=== PATIENT | male | born 1980 | race Hispanic/Latino ===

== ENCOUNTER 2019-03-24 20:53 | Emergency (ER) | payer SELFPAY ==
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
[2019-03-24] MEDS ORDERED: KETOROLAC 30 MG/ML INJ ONE (21:25)
[2019-03-24 23:14] VITALS: BP 144/97; TEMP 98.4; O2SAT 99
== END 2019-03-24 22:04 | disposition home or self-care (01) ==
LOC: ER 20:53
DX: S33.5XXA Sprain of ligaments of lumbar spine, initial encounter (principal); V49.49XA Driver injured in collision with other motor vehicles in traffic accident, initial encounter
CPT/HCPCS: 96372; 99283

== ENCOUNTER 2019-06-19 11:19 | Emergency (ER) | payer OTHER ==
[2019-06-19] MEDS ORDERED: MORPHINE 4 MG/ML SYR ONE (12:17)
[2019-06-19] MEDS ORDERED: ONDANSETRON 4 MG/2 ML VIAL ONE (12:17)
[2019-06-19 12:36] LABS: Absolute Lymphocytes (CBC) 1.8 K/uL (0.7-4.9); Hematocrit 54.5 % (39.6-49.0); Lymphocytes % 22.4 % (15.3-44.8); MPV 8.5 fL (7.6-11.3); RBC Red Blood Cell Count 6.15 M/uL (4.33-5.43)
[2019-06-19 12:47] LABS: Potassium 4.2 mmol/L (3.5-5.1)
--- NOTE | 2019-06-19 13:08 | RAD REPORT ---
EXAM DESCRIPTION: US - Scrotum Testicles - 06/19/2019 12:54 pm CLINICAL HISTORY: left testicular pain COMPARISON: Pelvis Complete dated 06/13/2019 FINDINGS: The right testicle 4.7 x 3.3 x 2.1 cm. No intratesticular masses or evidence of testicular torsion. The left testicle 4.7 x 3.9 x 2.1 cm. No intratesticular masses or evidence of testicular torsion. Both epididymides are normal in size and appearance. No pathologic fluid collections. IMPRESSION: Unremarkable study.
--- NOTE | 2019-06-19 13:13 | RAD REPORT ---
EXAM DESCRIPTION: CTAbdomen Pelvis W Contrast - 06/19/2019 1:03 pm CLINICAL HISTORY: Abdominal pain. LLQ/inguinal pain COMPARISON: No comparisons TECHNIQUE: Biphasic CT imaging of the abdomen and pelvis was performed with 100 ml non-ionic IV cont rast. All CT scans are performed using dose optimization technique as appropriate and may include automated exposure control or mA/KV adjustment according to patient size. FINDINGS: The lung bases are clear. The liver, spleen, pancreas, adrenal glands and right kidney are within normal limits. 8 mm stone is present midpole left kidney. No hydronephrosis. No bowel obstruction, free air, free fluid or abscess. The appendix is normal. No evidence of signi ficant lymphadenopathy. No suspicious bony findings. Small fat containing left inguinal hernia. IMPRESSION: 8 mm non obstructing left renal calculus. Small fat containing left inguinal hernia.
[2019-06-19 13:39] LABS: Urine Blood NEGATIVE (NEG); Urine Glucose NEGATIVE (NEG); Urine Protein NEGATIVE (NEG); Urine Specific Gravity 1.015 (1.005-1.030)
--- NOTE | 2019-06-19 13:42 | ER ---
Nurse's Notes [facility] Name: Reji Carolina Age: 39 yrs Sex: Male : 1980 Arrival Date: 06/19/2019 Time: 11:22 Bed 27 Private MD: Diagnosis: Unilateral inguinal hernia, without obstruction or gangrene;Nephrolithiasis Presentation: 06/19 11:28 Presenting complaint: Patient states: has hx of left testicular hernia, has been having iw increasing pain to groin, was sen by Dr. Andrea and was told to come to ER for evaluation. Transition of care: patient was not received from another setting of care. Onset of symptoms was 2018. Risk Assessment: Do you want to hurt yourself or someone else? Patient reports no desire to harm self or others. Initial Sepsis Screen: Does the patient meet any 2 criteria? No. Patient's initial sepsis screen is negative. Does the patient have a suspected source of infection? No. Patient's initial sepsis screen is negative. Care prior to arrival: None. 11:28 Method Of Arrival: Ambulatory iw 11:28 Acuity: CECY 3 iw Historical: - Allergies: 11:32 No Known Allergies; iw - PMHx: 11:32 Hypertension; iw - PSHx: 11:32 None; iw - Immunization history:: Adult Immunizations. - Coronavirus screen:: The patient has NOT traveled to [place] in the past 14 days. Proceed with normal triage process as indicated. - Social history:: Smoking status: Patient denies any tobacco usage or history of. - Family history:: not pertinent. - Ebola Screening: : Patient negative for fever greater than or equal to 101.5 degrees Fahrenheit, and additional compatible Ebola Virus Disease symptoms Patient denies exposure to infectious person Patient denies travel to an Ebola-affected area in the 21 days before illness onset No symptoms or risks identified at this time. - Hospitalizations: : No recent hospitalization is reported. Screenin:26 Abuse screen: Denies threats or abuse. Denies injuries from another. Nutritional mg2 screening: No deficits noted. Tuberculosis screening: No symptoms or risk factors identified. Fall Risk IV access (20 points). Assessment: 12:24 General: Appears in no apparent distress. comfortable, Behavior is calm, cooperative. mg2 Pain: Complains of pain in pelvis. Neuro: Level of Consciousness is awake, alert, obeys commands, Oriented to person, place, time, situation. Cardiovascular: Capillary refill < 3 seconds Patient's skin is warm and dry. Respiratory: Airway is patent Respiratory effort is even, unlabored, Respiratory pattern is regular, symmetrical. GI: Bowel sounds present X 4 quads. Abd is soft and non tender. : Reports pain testicle. EENT: No signs and/or symptoms were reported regarding the EENT system. Derm: Skin is intact, is healthy with good turgor, Skin is pink, warm \T\ dry. normal. Musculoskeletal: Circulation, motion, and sensation intact. Capillary refill < 3 seconds. 13:30 Reassessment: Patient appears in no apparent distress at this time. Patient and/or ca1 family updated on plan of care and expected duration. Pain level reassessed. Patient is alert, oriented x 3, equal unlabored respirations, skin warm/dry/pink. Vital Signs: 11:32 BP 127 / 85; Pulse 79; Resp 16; Temp 97.9; Pulse Ox 97% ; Weight 104.33 kg; Height 5 iw ft. 11 in. (180.34 cm); Pain 8/10; 12:14 BP 115 / 81; Pulse 70; Resp 18; Pulse Ox 100% on R/A; mg2 13:27 BP 123 / 76; Pulse 64; Resp 18; Pulse Ox 95% on R/A; mg2 11:32 Body Mass Index 32.08 (104.33 kg, 180.34 cm) iw ED Course: 11:22 Patient arrived in ED. mr 11:32 Triage completed. iw 11:32 Arm band placed on. iw 11:49 Oleg Carrillo, RN is Primary Nurse. mg2 12:02 Puneet Gunter MD is Attending Physician. rn 12:15 Inserted saline lock: 20 gauge in right antecubital area, using aseptic technique. jp3 Blood collected. Patient maintains SpO2 saturation greater than 95% on room air. 12:15 Initial lab(s) drawn, by me, sent to lab. jp3 12:22 Placed in gown. Bed in low position. Call light in reach. Side rails up X 1. Warm jp3 blanket given. Verbal reassurance given. monitor car operator on. Pulse ox on. NIBP on. 12:26 No provider procedures requiring assistance completed. mg2 13:03 US Scrotum Testicles In Process Unspecified. EDMS 13:08 CT Abd/Pelvis - IV Contrast Only In Process Unspecified. EDMS 13:56 IV discontinued, intact, bleeding controlled, No redness/swelling at site. Pressure ca1 dressing applied. Administered Medications: 12:23 Drug: morphine 4 mg Route: IVP; Site: right antecubital; mg2 13:25 Follow up: Response: No adverse reaction mg2 12:23 Drug: Zofran 4 mg Route: IVP; Site: right antecubital; mg2 13:24 Follow up: Response: No adverse reaction mg2 Outcome: 13:42 Discharge ordered by . rn 13:56 Discharged to home ambulatory. ca1 13:56 Condition: stable 13:56 Discharge instructions given to patient, Instructed on discharge instructions, follow up and referral plans. Demonstrated understanding of instructions, follow-up care. 13:56 Patient left the ED. ca1 Signatures: Dispatcher [employer] EDMS Hayley Adkins Irene, SHARAD OROURKE iw Puneet Gunter MD MD rn Gardose, Michele, RN RN mg2 Saad Olmedo jp3 China Lamb RN RN ca1
--- NOTE | 2019-06-19 13:43 | EDPHYS ---
Physician Documentation [facility] Name: Reji Carolina Age: 39 yrs Sex: Male : 1980 Arrival Date: 06/19/2019 Time: 11:22 Bed 27 Private MD: ED Physician Puneet Gunter HPI: 06/19 12:16 This 39 yrs old Male presents to ER via Ambulatory with complaints of rn Abdominal Pain. 12:16 The patient presents with abdominal pain in the left lower quadrant, left groin. Onset: rn The symptoms/episode began/occurred at an unknown time. The symptoms radiate to pelvis. The symptoms are described as achy, intermittent. Modifying factors: The symptoms are alleviated by nothing, the symptoms are aggravated by touching the area, sexual intercourse. Severity of pain: At its worst the pain was moderate in the emergency department the pain has improved. The patient has experienced similar episodes in the past. Reports atleast several months of left groin and testicular pain, no trauma, has been seen in ER and told maybe a hernia. Seen by Dr. Andrea, who sent him to ER for increased pain and evaluation. Patient states worse with walking and during sexual intercourse. . Historical: - Allergies: 11:32 No Known Allergies; iw - PMHx: 11:32 Hypertension; iw - PSHx: 11:32 None; iw - Immunization history:: Adult Immunizations. - Coronavirus screen:: The patient has NOT traveled to [place] in the past 14 days. Proceed with normal triage process as indicated. - Social history:: Smoking status: Patient denies any tobacco usage or history of. - Family history:: not pertinent. - Ebola Screening: : Patient negative for fever greater than or equal to 101.5 degrees Fahrenheit, and additional compatible Ebola Virus Disease symptoms Patient denies exposure to infectious person Patient denies travel to an Ebola-affected area in the 21 days before illness onset No symptoms or risks identified at this time. - Hospitalizations: : No recent hospitalization is reported. ROS: 12:16 Constitutional: Negative for fever, chills, and weight loss, Cardiovascular: Negative rn for chest pain, palpitations, and edema, Respiratory: Negative for shortness of breath, cough, wheezing, and pleuritic chest pain, Abdomen/GI: + LLQ/groin pain Back: Negative for injury and pain, : + left testicular pain MS/Extremity: Negative for injury and deformity, Skin: Negative for injury, rash, and discoloration, Neuro: Negative for headache, weakness, numbness, tingling, and seizure. Exam: 12:16 Constitutional: This is a well developed, well nourished patient who is awake, alert, rn and in no acute distress. Cardiovascular: Regular rate and rhythm. No pulse deficits. Respiratory: No increased work of breathing, no retractions or nasal flaring. Abdomen/GI: soft, mild LLQ tenderness, + left inguinal LAD, no hernia palpated. Male : Normal genitalia with no discharge or lesions. + mild left testicular tenderness without swelling/warmth/mass Skin: Warm, dry MS/ Extremity: Pulses equal, no cyanosis. Neurovascular intact. Full, normal range of motion. Equal circumference. Neuro: Awake and alert, GCS 15 Vital Signs: 11:32 BP 127 / 85; Pulse 79; Resp 16; Temp 97.9; Pulse Ox 97% ; Weight 104.33 kg; Height 5 iw ft. 11 in. (180.34 cm); Pain 8/10; 12:14 BP 115 / 81; Pulse 70; Resp 18; Pulse Ox 100% on R/A; mg2 13:27 BP 123 / 76; Pulse 64; Resp 18; Pulse Ox 95% on R/A; mg2 11:32 Body Mass Index 32.08 (104.33 kg, 180.34 cm) iw MDM: 12:02 Patient medically screened. rn 13:37 Differential diagnosis: ureterolithiasis, inguinal hernia, lymphadenopathy, rn epididymitis. Data reviewed: vital signs, nurses notes, lab test result(s), radiologic studies, CT scan, ultrasound, and as a result, I will discharge patient. Counseling: I had a detailed discussion with the patient and/or guardian regarding: the historical points, exam findings, and any diagnostic results supporting the discharge/admit diagnosis, lab results, radiology results, the need for outpatient follow up, to return to the emergency department if symptoms worsen or persist or if there are any questions or concerns that arise at home. Response to treatment: the patient's condition has returned to base line, the patient is now symptom free, and as a result, I will discharge patient. Special discussion: I discussed with the patient/guardian in detail that at this point there is no indication for admission to the hospital. It is understood, however, that if the symptoms persist or worsen the patient needs to return immediately for re-evaluation. Based on the history and exam findings, there is no indication for further emergent testing or inpatient evaluation. I discussed with the patient/guardian the need to see the general surgeon for further evaluation of the symptoms. ED course: Consulted with Dr. Andrea, small inguinal hernia that only contains fat, pain resolved, testicular u/s negative, will dc home with appt at Dr. Ragsdale office tomorrow. . 06/19 12:10 Order name: Basic Metabolic Panel; Complete Time: 13:37 rn 06/19 12:10 Order name: CBC with Diff; Complete Time: 13:37 rn 06/19 12:10 Order name: Creatinine for Radiology; Complete Time: 13:37 rn 06/19 12:10 Order name: CT Abd/Pelvis - IV Contrast Only rn 06/19 12:10 Order name: Urine Microscopic Only 06/19 13:27 Order name: Urine Dipstick--Ancillary (enter results) 06/19 12:10 Order name: IV Saline Lock; Complete Time: 12:23 rn 06/19 12:10 Order name: Labs collected and sent; Complete Time: 12:23 rn 06/19 12:10 Order name: US Scrotum Testicles; Complete Time: 13:37 rn 06/19 12:10 Order name: Urine Dipstick-Ancillary (obtain specimen); Complete Time: 13:24 rn Administered Medications: 12:23 Drug: morphine 4 mg Route: IVP; Site: right antecubital; mg2 13:25 Follow up: Response: No adverse reaction mg2 12:23 Drug: Zofran 4 mg Route: IVP; Site: right antecubital; mg2 13:24 Follow up: Response: No adverse reaction mg2 Disposition: 06/19/19 13:42 Discharged to Home. Impression: Unilateral inguinal hernia, without obstruction or gangrene, Nephrolithiasis. - Condition is Stable. - Discharge Instructions: Inguinal Hernia, Adult. - Medication Reconciliation Form, Thank You Letter, Antibiotic Education, Prescription Opioid Use, Work release form form. - Follow up: Private Physician; When: As needed; Reason: Recheck today's complaints, Re-evaluation by your physician. - Problem is an ongoing problem. - Symptoms have improved. Signatures: Dispatcher [employer] Christiana Adams RN RN iw Puneet Gunter MD MD rn Gardose, Michele, RN RN mg2 China Lamb RN RN ca1 Corrections: (The following items were deleted from the chart) 13:56 13:42 06/19/2019 13:42 Discharged to Home. Impression: Unilateral inguinal hernia, ca1 without obstruction or gangrene; Nephrolithiasis. Condition is Stable. Forms are Medication Reconciliation Form, Thank You Letter, Antibiotic Education, Prescription Opioid Use. Follow up: Private Physician; When: As needed; Reason: Recheck today's complaints, Re-evaluation by your physician. Problem is an ongoing problem. Symptoms have improved. rn
[2019-06-19 13:59] LABS: Urine Bacteria <20 /HPF (NONE SEEN); Urine Culture Reflex Order NOT NEEDED; Urine RBC <5 /HPF (NONE SEEN)
[2019-06-19 14:32] VITALS: TEMP 97.9
[2019-06-19 14:35] VITALS: BP 123/76; O2SAT 95
== END 2019-06-19 13:56 | disposition home or self-care (01) ==
LOC: ER 11:19
DX: K40.90 Unilateral inguinal hernia, without obstruction or gangrene, not specified as recurrent (principal); N20.0 Calculus of kidney; I10 Essential (primary) hypertension
CPT/HCPCS: 85025; 80048; 36415; 74177; 76870; 96375; 96374; 99285; Q9967; J2405; 81003; 81015

== ENCOUNTER 2019-06-25 09:00 | Day surgery (SDC) | payer OTHER ==
--- NOTE | 2019-06-25 09:13 | RAD REPORT ---
EXAM DESCRIPTION: RAD - Chest Pa And Lat (2 Views) - 06/25/2019 9:02 am CLINICAL HISTORY: preop Chest pain. COMPARISON: No comparisons FINDINGS: The lungs are clear. The heart is normal in size. No displaced fractures. IMPRESSION: No acute or concerning finding suspected.
[2019-06-25] MEDS ORDERED: Ringers Lactate 1,000 ML IV ONE ×2 (09:26→13:39)
[2019-06-25] MEDS ORDERED: CEFAZOLIN/SWI 1gm 1 GM/10 ML SYR ONE (09:27)
[2019-06-25] MEDS ORDERED: FENTANYL CITR 100 MCG/2 ML ONE ×2 (09:28→10:39)
[2019-06-25] MEDS ORDERED: MIDAZOLAM HCL 2 MG/2 ML INJ ONE (09:28)
[2019-06-25] MEDS ORDERED: LIDOCAINE 1% MPF 5 ML VIAL ONE (09:28)
[2019-06-25] MEDS ORDERED: propofoL 200 MG/20 ML VIAL IV ONE (09:28)
[2019-06-25] MEDS ORDERED: ONDANSETRON 4 MG/2 ML VIAL ONE (10:35)
[2019-06-25] MEDS ORDERED: KETOROLAC 30 MG/ML INJ ONE (10:35)
[2019-06-25] MEDS ORDERED: HYDROMORPHONE HCL 2 MG/ML inj ONE (11:34)
--- NOTE | 2019-06-25 11:52 | EKG ---
Test Date: 2019-06-25 Test Time: 08:41:27 Cotton Buyer: JOE MEASUREMENT RESULTS: Intervals: Rate: 70 MN: 160 QRSD: 94 QT: 394 QTc: 425 [place]: P: 51 MN: 160 QRS: 43 T: 52 INTERPRETIVE STATEMENTS: Normal sinus rhythm Normal ECG No previous ECG available for comparison Electronically Signed On 06-25-19 11:51:16 PHYSICAL ANTHROPOLOGIST by Braulio Albrecht
[2019-06-25] MEDS ORDERED: HYDROCODONE/APAP 7.5/325 MG TAB ONE (12:29)
[2019-06-25 13:37] VITALS: TEMP 97
[2019-06-25 13:40] VITALS: BP 123/77; O2SAT 98
--- NOTE | 2019-06-25 18:23 | OP ---
Date of Procedure: 06/25/2019 Surgeon: Stuart Andrea MD Ore Dressing Engineer: NIESHA Rivera. Preoperative Diagnosis: Left inguinal hernia. Postoperative Diagnosis: Left inguinal hernia. Procedure: Repair of left inguinal hernia. Estimated Blood Loss: Minimal. Specimen: Cord lipoma and hernia sac. Finding: As above. Anesthesia: General. Complications: None. Disposition: The patient tolerated the procedure in stable condition, taken to Recovery in good gene ral condition. Operative Note: The patient was brought to the OR and placed in supine position. General anesthesia begun. Patient was prepped and draped in the usual sterile fashion. Marcaine 0.5% was infiltrated locally. A 15-blade was used to make a 4 cm oblique incision between the left pubic tubercle in the anterior iliac superior spine. Subcutaneous tissue divided. Burton fascia identified and divided. Aponeurosis was identified, mobilized inferiorly to expose the shelving edge and then opened through the internal ring. Ilioinguinal nerve and cord structures identified. Nerve retracted out of the fi eld of dissection. Cord mobilized at the pubic tubercle and skeletonized. Large cord lipoma and a s mall hernia sac associated with it was identified. High ligation with 2-0 Prolene suture ligature in free hand tie was done, excised, sent to Pathology as specimen. Marlex mesh plug placed in the inte rnal ring, secured with the VersaTack stapler. Onlay mesh placed on the inguinal floor, secured medi ally to the pubic tubercle, superior to the conjoined tendon, inferior to the shelving edge, laterall y to each other. Then, cord structures and the nerve placed back in anatomical location. Aponeurosi s closed with 2-0 Prolene and 3-0 chromic used to approximate Burton fascia. Zaira were used to cl osed skin. Sterile dressing was applied. Patient was awakened and taken to Recovery in good general condition. Discharged home. The patient will go to Day Surgery and home when stable. Disposition: Home. Condition: Stable. Discharge Instructions: Resume home medications and diet. Activity as tolerated. No heavy lifting. Remove outer dressing in 2 days. Shower. Keep wound clean and dry. Follow up in my office in 1 [place]. Call for appointment. Tylenol No. 3 one tablet p.o. q.4 p.r.n. pain. Ice pack and scrotal sup port were ordered. /LORE Voice ID: [id number] Report ID: [id number]
== END 2019-06-25 14:20 | disposition home or self-care (01) ==
LOC: OR 09:00
PROVIDERS: ATTEND Surgery
PROC: 0YU60JZ Supplement Left Inguinal Region with Synthetic Substitute, Open Approach (ICD-10-PCS; principal; 2019-06-25 10:00)
DX: K40.90 Unilateral inguinal hernia, without obstruction or gangrene, not specified as recurrent (principal); I10 Essential (primary) hypertension
CPT/HCPCS: 93005; 88302; 71046; 49505; J2704; J2250; J1170; J3010 ×2; J0690; J7120 ×2; J2405

== ENCOUNTER 2019-09-01 11:04 | Emergency (ER) | payer OTHER ==
[2019-09-01 11:39] LABS: Basophils % 0.8 % (0-1.3); Lymphocytes % 19.3 % (15.3-44.8); MPV 8.1 fL (7.6-11.3); RBC Red Blood Cell Count 6.04 M/uL (4.33-5.43)
[2019-09-01 11:40] LABS: Protime INR 1.01
[2019-09-01] MEDS ORDERED: ASPIRIN 81 MG CHEWABLE TABLET ONE (11:40)
[2019-09-01] MEDS ORDERED: AMLODIPINE 5 MG TAB ONE (11:44)
[2019-09-01 11:54] LABS: ALT/SGPT 30 U/L (12-78); AST/SGOT 17 U/L (15-37); Albumin 4.1 g/dL (3.4-5.0); Alkaline Phosphatase 98 U/L (45-117); BUN Blood Urea Nitrogen 11 mg/dL (7-18); Bicarbonate 27 mmol/L (21-32); Bilirubin Direct 0.2 mg/dL (0-0.2); Bilirubin Total 0.6 mg/dL (0.2-1.0); Glucose Level 97 mg/dL (74-106); Magnesium 2.1 mg/dL (1.8-2.4); Potassium 3.8 mmol/L (3.5-5.1); Protein, Total 8.6 g/dL (6.4-8.2); Sodium Level 139 mmol/L (136-145); Troponin (Emerg Dept Use Only) < 0.02 ng/mL (0.0-0.045)
[2019-09-01 11:56] LABS: NT PRO-BNP < 5 pg/mL (<125)
--- NOTE | 2019-09-01 12:37 | RAD REPORT ---
EXAM DESCRIPTION: RAD - Chest Single View - 09/01/2019 11:50 am CLINICAL HISTORY: PALPITATIONS Chest pain. COMPARISON: Chest Pa And Lat (2 Views) dated 06/25/2019 FINDINGS: Portable technique limits examination quality. The lungs are grossly clear. The heart is normal in size. No displaced fractures. IMPRESSION: No acute intrathoracic process suspected.
--- NOTE | 2019-09-01 12:45 | EDPHYS ---
Physician Documentation [facility] [place], [place] Name: Reji Carolina Age: 39 yrs Sex: Male : 1980 Arrival Date: 09/01/2019 Time: 11:05 Bed 19 Private MD: ED Physician Puneet Gunter HPI: 08/31 11:30 This 39 yrs old Male presents to ER via Ambulatory with complaints of High cp Blood Pressure. 11:30 The patient has elevated blood pressure and discovered this at home, with a home device.cp 11:30 Associated signs and symptoms: Pertinent positives: chest tightness and palpitations cp last night. Patient reports taking last dose of hypertensive meds 3 days ago. Historical: - Allergies: 11:26 No Known Allergies; ca1 - Home Meds: 11:26 amlodipine 10 mg tab 1 tab once daily [Active]; valsartan 320 mg oral tab 1 tab once ca1 daily [Active]; Hydrochlorothiazide Oral [Active]; - PMHx: 11:26 Hypertension; ca1 - PSHx: 11:26 Hernia repair; ca1 - Immunization history:: Adult Immunizations not up to date. - Social history:: Smoking status: Patient denies any tobacco usage or history of. ROS: 11:33 Constitutional: Negative for fever. cp 11:33 Eyes: Negative for injury, pain, redness, and discharge. cp 11:33 Cardiovascular: Positive for palpitations, chest tightness. 11:33 Respiratory: Negative for cough, shortness of breath, wheezing. 11:33 Abdomen/GI: Negative for abdominal pain, nausea, vomiting, and diarrhea. 11:33 Neuro: Negative for altered mental status, headache, syncope, weakness. 11:33 All other systems are negative. Exam: 11:25 ECG was reviewed by the Attending Physician. cp 11:35 Constitutional: The patient appears in no acute distress, alert, awake, cp non-diaphoretic, non-toxic, well developed, well nourished. 11:35 Head/Face: Normocephalic, atraumatic. cp 11:35 Eyes: Periorbital structures: appear normal, Conjunctiva: normal, no exudate, no injection, Sclera: no appreciated abnormality, Lids and lashes: appear normal, bilaterally. 11:35 ENT: External ear(s): are unremarkable, Nose: is normal, Mouth: is normal, Posterior pharynx: is normal, airway is patent. 11:35 Chest/axilla: Inspection: normal, Palpation: is normal, no crepitus, no tenderness. 11:35 Cardiovascular: Rate: normal, Rhythm: regular, Edema: is not appreciated, JVD: is not appreciated. 11:35 Respiratory: the patient does not display signs of respiratory distress, Respirations: normal, no use of accessory muscles, no retractions, labored breathing, is not present, Breath sounds: are clear throughout, no decreased breath sounds. 11:35 Abdomen/GI: Inspection: abdomen appears normal, Palpation: abdomen is soft and non-tender, in all quadrants. 11:35 Back: pain, is absent, ROM is normal. 11:35 Neuro: Orientation: to person, place \T\ time. Mentation: is normal, Cerebellar function: is grossly normal, Motor: moves all fours, strength is normal, Sensation: is normal. Vital Signs: 11:22 BP 148 / 93; Pulse 86; Resp 17 S; Temp 99(TE); Pulse Ox 98% on R/A; Weight 99.79 kg ca1 (R); Height 5 ft. 11 in. (180.34 cm) (R); Pain 0/10; 12:35 BP 133 / 88; Pulse 81; Resp 17 S; Pulse Ox 98% on R/A; ca1 11:22 Body Mass Index 30.68 (99.79 kg, 180.34 cm) ca1 MDM: 11:14 Patient medically screened. cp 11:30 Differential diagnosis: hypertensive crisis, Malignant HTN, CVA, intracerebral cp hemorrhage. 12:43 Data reviewed: vital signs, nurses notes, lab test result(s), EKG, radiologic studies, cp plain films, and as a result, I will discharge patient. 12:43 Test interpretation: by ED physician or midlevel provider: ECG. Response to treatment: cp the patient's symptoms have markedly improved after treatment, VSS. Blood pressure markedly improved with meds, and as a result, I will discharge patient. 08/31 11:22 Order name: Basic Metabolic Panel; Complete Time: 11:59 cp 08/31 11:59 Interpretation: Normal except: GFR 76. cp 08/31 11:22 Order name: CBC with Diff; Complete Time: 11:59 cp 05/03 11:59 Interpretation: Normal except: RBC 6.04; HGB 18.0; HCT 53.0. cp 05/ 11:22 Order name: LFT's; Complete Time: 11:59 cp 05/03 12:00 Interpretation: Normal except: TP 8.6; GLOB 4.5; A/G 0.9. cp 05/03 11:22 Order name: Magnesium; Complete Time: 11:59 cp /03 11:22 Order name: NT PRO-BNP; Complete Time: 11:59 cp 05/03 11:22 Order name: PT-INR; Complete Time: 11:59 cp /03 11:22 Order name: Troponin (emerg Dept Use Only); Complete Time: 11:59 cp /03 12:01 Interpretation: TROPED < 0.02; Reviewed. cp / 11:22 Order name: XRAY Chest (1 view); Complete Time: 12:41 cp /03 12:41 Interpretation: Report review. cp 08/31 11:22 Order name: EKG; Complete Time: 11:23 cp 08/31 11:22 Order name: Cardiac monitoring; Complete Time: 11:31 cp 08/31 11:22 Order name: EKG - Nurse/Tech; Complete Time: 11:31 cp 08/31 11:22 Order name: IV Saline Lock; Complete Time: 11:31 cp 08/31 11:22 Order name: Labs collected and sent; Complete Time: 11:31 cp 08/31 11:22 Order name: O2 Per Protocol; Complete Time: 11:31 cp 08/31 11:22 Order name: O2 Sat Monitoring; Complete Time: 11:31 cp EC:25 Rate is 90 beats/min. Rhythm is regular. AK interval is normal. QRS interval is normal. cp QT interval is normal. Interpreted by me. Reviewed by me. Administered Medications: 11:36 Drug: Aspirin Chewable Tablet 324 mg Route: PO; ca1 12:44 Follow up: Response: No adverse reaction ca1 11:38 Drug: amLODIPine 10 mg Route: PO; ca1 12:44 Follow up: Response: No adverse reaction; Blood pressure is lowered ca1 Disposition: 15:05 Co-signature as Attending Physician, Puneet Gunter MD. rn Disposition: 09/01/19 12:44 Discharged to Home. Impression: Hypertensive heart disease, Palpitations. - Condition is Stable. - Discharge Instructions: Hypertension, Palpitations, How to Take Your Blood Pressure, [id number], Managing Your Hypertension. - Prescriptions for amlodipine 10 mg Oral tablet - take 1 tablet by ORAL route once daily; 30 tablet. valsartan 320 mg Oral tablet - take 1 tablet by ORAL route once daily; 30 tablet. - Medication Reconciliation Form, Thank You Letter, Antibiotic Education, Prescription Opioid Use form. - Follow up: Private Physician; When: 2 - 3 days; Reason: Recheck today's complaints. - Problem is new. - Symptoms have improved. Signatures: Dispatcher [employer] EDMS Puneet Gunter MD MD rn Braydon Rivas PA PA cp China Lamb RN RN ca1 Corrections: (The following items were deleted from the chart) 13:00 12:44 09/01/2019 12:44 Discharged to Home. Impression: Hypertensive heart disease; ca1 Palpitations. Condition is Stable. Forms are Medication Reconciliation Form, Thank You Letter, Antibiotic Education, Prescription Opioid Use. Follow up: Private Physician; When: 2 - 3 days; Reason: Recheck today's complaints. Problem is new. Symptoms have improved. cp 09/01 10:28 08/31 11:30 Associated signs and symptoms: Pertinent positives: cp cp
--- NOTE | 2019-09-01 12:45 | ER ---
Nurse's Notes [facility] Name: Reji Carolina Age: 39 yrs Sex: Male : 1980 Arrival Date: 09/01/2019 Time: 11:05 Bed 19 Private MD: Diagnosis: Hypertensive heart disease;Palpitations Presentation: 08/31 11:22 Chief complaint: Patient states: BP was 157/100 20 minutes ago. Takes BP medications ca1 but ran out 3 days ago. Reports chest tightness and palpitations last night, not today. Denies dizziness, headache, N/V, SOB. Coronavirus screen: Proceed with normal triage. Patient denies a cough. Patient denies shortness of breath or difficulty breathing. Patient denies measured and/or subjective temperature greater than 100.4F prior to today's visit. Patient denies travel on a cruise ship or to a country the [facility] currently lists as an affected area. Patient denies contact with known and/or suspected case of COVID-19. Ebola Screen: Patient negative for fever greater than or equal to 101.5 degrees Fahrenheit, and additional compatible Ebola Virus Disease symptoms Patient denies exposure to infectious person. Patient denies travel to an Ebola-affected area in the 21 days before illness onset. No symptoms or risks identified at this time. Initial Sepsis Screen: Does the patient meet any 2 criteria? No. Patient's initial sepsis screen is negative. Does the patient have a suspected source of infection? No. Patient's initial sepsis screen is negative. Risk Assessment: Do you want to hurt yourself or someone else? Patient reports no desire to harm self or others. Onset of symptoms was September 01, 2019. 11:22 Method Of Arrival: Ambulatory ca1 11:22 Acuity: CECY 3 ca1 Triage Assessment: 11:26 General: Appears in no apparent distress. comfortable, Behavior is calm, cooperative, ca1 appropriate for age. Pain: Complains of pain in chest Pain does not radiate. Pain currently is 0 out of 10 on a pain scale. Quality of pain is described as tightness Pain began last night Is intermittent. EENT: No signs and/or symptoms were reported regarding the EENT system. Neuro: Level of Consciousness is awake, alert, obeys commands, Oriented to person, place, time, situation, Appropriate for age. Cardiovascular: Heart tones S1 S2 present Capillary refill < 3 seconds Rhythm is sinus rhythm. Respiratory: Airway is patent Respiratory effort is even, unlabored, Respiratory pattern is regular, symmetrical, Breath sounds are clear bilaterally. GI: Abdomen is round non-distended, Bowel sounds present X 4 quads. Abd is soft and non tender X 4 quads. : No signs and/or symptoms were reported regarding the genitourinary system. Derm: Skin is intact, is healthy with good turgor, Skin is pink, warm \T\ dry. Musculoskeletal: Circulation, motion, and sensation intact. Capillary refill < 3 seconds. Historical: - Allergies: : No Known Allergies; ca1 - Home Meds: : amlodipine 10 mg tab 1 tab once daily [Active]; valsartan 320 mg oral tab 1 tab once ca1 daily [Active]; Hydrochlorothiazide Oral [Active]; - PMHx: : Hypertension; ca1 - PSHx: : Hernia repair; ca1 - Immunization history:: Adult Immunizations not up to date. - Social history:: Smoking status: Patient denies any tobacco usage or history of. Screenin: Abuse screen: Denies threats or abuse. Denies injuries from another. Nutritional ca1 screening: No deficits noted. Tuberculosis screening: No symptoms or risk factors identified. Fall Risk IV access (20 points). Assessment: :28 Reassessment: SEE TRIAGE NOTES. ca1 12:35 Reassessment: Patient appears in no apparent distress at this time. Patient and/or ca1 family updated on plan of care and expected duration. Pain level reassessed. Patient is alert, oriented x 3, equal unlabored respirations, skin warm/dry/pink. Vital Signs: 11:22 BP 148 / 93; Pulse 86; Resp 17 S; Temp 99(TE); Pulse Ox 98% on R/A; Weight 99.79 kg ca1 (R); Height 5 ft. 11 in. (180.34 cm) (R); Pain 0/10; 12:35 BP 133 / 88; Pulse 81; Resp 17 S; Pulse Ox 98% on R/A; ca1 11:22 Body Mass Index 30.68 (99.79 kg, 180.34 cm) ca1 ED Course: 11:05 Patient arrived in ED. ag5 11:09 Braydon Rivas PA is PHCP. cp 11:09 Puneet Gunter MD is Attending Physician. cp 11:21 China Lamb, RN is Primary Nurse. ca1 11:24 Triage completed. ca1 11:26 Arm band placed on. EKG completed in triage. Results shown to MD. ca1 11:28 Patient has correct armband on for positive identification. Placed in gown. Bed in low ca1 position. Call light in reach. Side rails up X 1. laboratory monitor on. Pulse ox on. NIBP on. Warm blanket given. 11:30 No provider procedures requiring assistance completed. Initial lab(s) drawn, by ED ca1 staff, sent to lab. Inserted saline lock: 20 gauge in right antecubital area, using aseptic technique. ,using aseptic technique. by , photovoltaic testing technician Blood collected. 11:50 XRAY Chest (1 view) In Process Unspecified. EDMS 13:00 IV discontinued, intact, bleeding controlled, No redness/swelling at site. Pressure ca1 dressing applied. Administered Medications: 11:36 Drug: Aspirin Chewable Tablet 324 mg Route: PO; ca1 12:44 Follow up: Response: No adverse reaction ca1 11:38 Drug: amLODIPine 10 mg Route: PO; ca1 12:44 Follow up: Response: No adverse reaction; Blood pressure is lowered ca1 Outcome: 12:44 Discharge ordered by MD. cp 13:00 Discharged to home ambulatory. ca1 13:00 Condition: good 13:00 Discharge instructions given to patient, Instructed on discharge instructions, follow up and referral plans. medication usage, Demonstrated understanding of instructions, follow-up care, medications, Prescriptions given X 2. 13:00 Patient left the ED. ca1 Signatures: Dispatcher [employer] EDAR Braydon Rivas PA PA cp China Lamb, RN RN ca1 Yash Castellano ag5
[2019-09-01 13:11] VITALS: BP 133/88; O2SAT 98
[2019-09-01 13:13] VITALS: TEMP 99
--- NOTE | 2019-09-02 10:51 | EKG ---
Test Date: 2019-09-01 Test Time: 11:21:51 [employer] Worker: MARILIN MEASUREMENT RESULTS: Intervals: Rate: 90 DE: 138 QRSD: 98 QT: 358 QTc: 437 Watson: P: 50 DE: 138 QRS: 64 T: 56 INTERPRETIVE STATEMENTS: Normal sinus rhythm Normal ECG Compared to ECG 06/25/2019 08:41:27 No significant changes Electronically Signed On 09-02-19 10:49:13 CDT by Braulio Albrecht
== END 2019-09-01 13:00 | disposition home or self-care (01) ==
LOC: ER 11:04
DX: I11.9 Hypertensive heart disease without heart failure (principal); I10 Essential (primary) hypertension
CPT/HCPCS: 36415; 71045; 80048; 80076; 83735; 83880; 84484; 85025; 85610; 93005; 99284

== ENCOUNTER 2019-10-12 20:17 | Emergency (ER) | payer OTHER ==
--- NOTE | 2019-10-12 23:22 | EDPHYS ---
Physician Documentation [facility] Name: Reji Carolina Age: 39 yrs Sex: Male : 1980 Arrival Date: 10/12/2019 Time: 20:21 Bed 17 Private MD: ED Physician Basil Bauer HPI: 10/11 23:15 This 39 yrs old Male presents to ER via Ambulatory with complaints of Sore tw4 Throat, Fever. 23:15 The patient presents with sore throat. The patient describes throat pain as dry, tw4 scratchy. Onset: The symptoms/episode began/occurred 4 day(s) ago. Severity of symptoms: At their worst the symptoms were moderate, in the emergency department the symptoms are unchanged. The patient has not experienced similar symptoms in the past. Historical: - Allergies: 20:39 No Known Allergies; ca1 - Home Meds: 20:39 amlodipine 10 mg tab 1 tab once daily [Active]; Hydrochlorothiazide Oral [Active]; ca1 valsartan 320 mg Oral tab 1 tab once daily [Active]; - PMHx: 20:39 Hypertension; ca1 - PSHx: 20:39 Hernia repair; ca1 - Immunization history:: Adult Immunizations up to date. - Social history:: Smoking status: Patient denies any tobacco usage or history of. ROS: 23:15 Constitutional: Negative for fever, chills, and weight loss. tw4 23:15 Cardiovascular: Negative for chest pain, palpitations, and edema, Respiratory: Negative for shortness of breath, cough, wheezing, and pleuritic chest pain, Abdomen/GI: Negative for abdominal pain, nausea, vomiting, diarrhea, and constipation, Back: Negative for injury and pain, Skin: Negative for injury, rash, and discoloration, Neuro: Negative for headache, weakness, numbness, tingling, and seizure. 23:15 ENT: Positive for Exam: 23:15 Constitutional: This is a well developed, well nourished patient who is awake, alert, tw4 and in no acute distress. Head/Face: Normocephalic, atraumatic. 23:15 Chest/axilla: Normal chest wall appearance and motion. Nontender with no deformity. No lesions are appreciated. Cardiovascular: Regular rate and rhythm with a normal S1 and S2. No gallops, murmurs, or rubs. Normal PMI, no JVD. No pulse deficits. Respiratory: Lungs have equal breath sounds bilaterally, clear to auscultation and percussion. No rales, rhonchi or wheezes noted. No increased work of breathing, no retractions or nasal flaring. Abdomen/GI: Soft, non-tender, with normal bowel sounds. No distension or tympany. No guarding or rebound. No evidence of tenderness throughout. MS/ Extremity: Pulses equal, no cyanosis. Neurovascular intact. Full, normal range of motion. 23:15 ENT: Posterior pharynx: erythema, that is moderate. 23:19 ENT: Posterior pharynx: erythema, exudate, that is mild. tw4 Vital Signs: 20:36 BP 125 / 91; Pulse 91; Resp 15 S; Temp 98.6(TE); Pulse Ox 95% on R/A; Weight 108.86 kg ca1 (R); Height 5 ft. 11 in. (180.34 cm) (R); Pain 8/10; 23:27 BP 122 / 89; Pulse 80; Resp 18; Temp 98.5; Pulse Ox 100% on R/A; mg2 20:36 Body Mass Index 33.47 (108.86 kg, 180.34 cm) ca1 MDM: 22:04 Patient medically screened. tw4 23:19 Differential diagnosis: pharyngitis. Data reviewed: vital signs, nurses notes. Data tw4 interpreted: Pulse oximetry: Interpretation: normal. Counseling: I had a detailed discussion with the patient and/or guardian regarding: the historical points, exam findings, and any diagnostic results supporting the discharge/admit diagnosis. Special discussion: I discussed with the patient/guardian in detail that at this point there is no indication for admission to the hospital. It is understood, however, that if the symptoms persist or worsen the patient needs to return immediately for re-evaluation. 10/11 20:39 Order name: Strep; Complete Time: 22:19 ca1 10/11 21:00 Order name: Throat Culture EDMS Administered Medications: No medications were administered Disposition: 10/12/19 23:22 Discharged to Home. Impression: Acute pharyngitis. - Condition is Stable. - Discharge Instructions: Pharyngitis, Sore Throat, [id number]. - Prescriptions for Amoxicillin 500 mg Oral Capsule - take 1 capsule by ORAL route every 8 hours for 10 days; 30 tablet. Ibuprofen 800 mg Oral Tablet - take 1 tablet by ORAL route every 8 hours As needed take with food; 30 tablet. - Medication Reconciliation Form, Thank You Letter, Antibiotic Education, Prescription Opioid Use form. - Follow up: Private Physician; When: Upon discharge from the Emergency Department; Reason: Recheck today's complaints, Continuance of care, Re-evaluation by your physician. - Problem is new. - Symptoms have improved. Signatures: Dispatcher [employer] Basil Mcdaniel MD MD tw4 Oleg Carrillo, RN RN mg2 China Lamb RN RN ca1 Corrections: (The following items were deleted from the chart) 23:27 23:22 10/12/2019 23:22 Discharged to Home. Impression: Acute pharyngitis. Condition is mg2 Stable. Forms are Medication Reconciliation Form, Thank You Letter, Antibiotic Education, Prescription Opioid Use. Follow up: Private Physician; When: Upon discharge from the Emergency Department; Reason: Recheck today's complaints, Continuance of care, Re-evaluation by your physician. Problem is new. Symptoms have improved. tw4
--- NOTE | 2019-10-12 23:22 | ER ---
Nurse's Notes [facility] Name: Reji Carolina Age: 39 yrs Sex: Male : 1980 Arrival Date: 10/12/2019 Time: 20:21 Bed 17 Private MD: Diagnosis: Acute pharyngitis Presentation: 10/11 20:36 Chief complaint: Patient states: Sore throat x 3-4 days. Hurts to swallow. Coronavirus ca1 screen: Proceed with normal triage. Patient denies a cough. Patient denies shortness of breath or difficulty breathing. Patient denies measured and/or subjective temperature greater than 100.4F prior to today's visit. Patient denies travel on a cruise ship or to a country the [facility] currently lists as an affected area. Patient denies contact with known and/or suspected case of COVID-19. Ebola Screen: Patient negative for fever greater than or equal to 101.5 degrees Fahrenheit, and additional compatible Ebola Virus Disease symptoms Patient denies exposure to infectious person. Patient denies travel to an Ebola-affected area in the 21 days before illness onset. No symptoms or risks identified at this time. Initial Sepsis Screen: Does the patient meet any 2 criteria? No. Patient's initial sepsis screen is negative. Does the patient have a suspected source of infection? No. Patient's initial sepsis screen is negative. Risk Assessment: Do you want to hurt yourself or someone else? Patient reports no desire to harm self or others. Onset of symptoms was October 12, 2019. 20:36 Method Of Arrival: Ambulatory ca1 20:36 Acuity: CECY 4 ca1 Historical: - Allergies: 20:39 No Known Allergies; ca1 - Home Meds: 20:39 amlodipine 10 mg tab 1 tab once daily [Active]; Hydrochlorothiazide Oral [Active]; ca1 valsartan 320 mg Oral tab 1 tab once daily [Active]; - PMHx: 20:39 Hypertension; ca1 - PSHx: 20:39 Hernia repair; ca1 - Immunization history:: Adult Immunizations up to date. - Social history:: Smoking status: Patient denies any tobacco usage or history of. Screenin:21 Abuse screen: Denies threats or abuse. Denies injuries from another. Nutritional mg2 screening: No deficits noted. Tuberculosis screening: No symptoms or risk factors identified. Fall Risk None identified. Assessment: 23:00 General: Appears in no apparent distress. comfortable, Behavior is calm, cooperative. mg2 Pain: Complains of pain in throat. Respiratory: Airway is patent Respiratory effort is even, unlabored, Respiratory pattern is regular, symmetrical, Breath sounds are clear bilaterally. in mediastinum, right upper lobe, left upper lobe, right middle lobe, left lower lobe, right lower lobe, left posterior upper lobe, right posterior upper lobe, left posterior lower lobe, right posterior middle lobe and right posterior lower lobe. EENT: Throat is reddened. Vital Signs: 20:36 BP 125 / 91; Pulse 91; Resp 15 S; Temp 98.6(TE); Pulse Ox 95% on R/A; Weight 108.86 kg ca1 (R); Height 5 ft. 11 in. (180.34 cm) (R); Pain 8/10; 23:27 BP 122 / 89; Pulse 80; Resp 18; Temp 98.5; Pulse Ox 100% on R/A; mg2 20:36 Body Mass Index 33.47 (108.86 kg, 180.34 cm) ca1 ED Course: 20:21 Patient arrived in ED. ds1 20:38 Triage completed. ca1 20:39 Arm band placed on right wrist. ca1 20:45 Strep Sent. ca1 21:31 Basil Bauer MD is Attending Physician. tw4 22:46 Oleg Carrillo, SHARAD is Primary Nurse. mg2 23:21 Patient has correct armband on for positive identification. Door closed. mg2 23:21 No provider procedures requiring assistance completed. Patient did not have IV access mg2 during this emergency room visit. Administered Medications: No medications were administered Outcome: 23:22 Discharge ordered by . tw4 23:27 Discharged to home ambulatory. mg2 23:27 Condition: stable 23:27 Discharge instructions given to patient, Instructed on discharge instructions, follow up and referral plans. medication usage, Demonstrated understanding of instructions, follow-up care, medications, Prescriptions given X 2. 23:27 Patient left the ED. mg2 Signatures: Marisable Serna ds1 Basil Bauer MD MD tw4 Oleg Carrillo, SHARAD RN mg2 China Lamb RN RN ca1 Corrections: (The following items were deleted from the chart) 21:38 20:36 Chief complaint: Patient states: Sore throat x 3-4 days. Hurts to swallow. ca1 ca1
[2019-10-12 23:33] VITALS: BP 122/89; TEMP 98.5; O2SAT 100
== END 2019-10-12 23:27 | disposition home or self-care (01) ==
LOC: ER 20:17
DX: J02.9 Acute pharyngitis, unspecified (principal); I10 Essential (primary) hypertension
CPT/HCPCS: 87070; 87081; 99283